=== PATIENT | female | born 1965 | race Caucasian/White ===

== ENCOUNTER 2021-01-10 11:40 | Emergency (ER) | payer BC ==
[~2021-01-10] VITALS: Ht 147.3 cm; Wt 68.0 kg
[2021-01-10 11:40] VITALS: BP_SYST 188
== END 2021-01-10 12:10 | disposition home or self-care (01) ==
LOC: SED 11:40
DX: I10 Essential (primary) hypertension (principal); R51.9 Headache, unspecified
CPT/HCPCS: 99281